=== PATIENT | female | born 2000 | race Caucasian/White ===

== ENCOUNTER 2019-02-07 10:08 | Emergency (ER) | payer MEDICAID ==
[~2019-02-07] VITALS: Ht 154.9 cm; Wt 57.2 kg
[2019-02-07 10:16] VITALS: Ht 154.9 cm; Wt 57.2 kg
[2019-02-07 11:51] VITALS: BP 133/80
== END 2019-02-07 11:51 | disposition home or self-care (01) ==
LOC: ED 10:08
DX: J20.9 Acute bronchitis, unspecified (principal)